=== PATIENT | female | born 1945 | race Caucasian/White ===

== ENCOUNTER 2024-12-21 20:40 | Emergency (ER) | payer MEDICARE ==
[~2024-12-21] VITALS: Ht 157.5 cm; Wt 77.0 kg
[2024-12-21 21:35] LABS: MEAN PLATELET VOLUME 7.1 FL (7.4-10.4); RED CELL DISTRIBUTION WIDTH 16.8 % (11.5-14.5)
[2024-12-21 21:44] LABS: CREATININE 1.32 MG/DL (0.40-0.90); TOTAL CARBON DIOXIDE 28.2 MMOL/L (24-32); eCRCL 28 ML/MIN; eGFR 39 ML/MIN
[2024-12-21 22:26] LABS: URINE HCG NEGATIVE (NEG)
[2024-12-21 22:55] LABS: LEUKOCYTE ESTERASE ,URINE MODERATE (Neg); NITRITES, URINE NEGATIVE (Neg); OCCULT BLOOD,URINE TRACE-INTACT (Neg)
[2024-12-21 22:56] LABS: UA COLLECTION TYPE CLN CATCH MIDSTREAM
--- NOTE | 2024-12-21 23:10 | Physician Documentation ---
History of Present Illness ~ Chief Complaint: Urinary Symptoms Stated Complaint: UTI Time Seen by MD: 23:08 Mode of Arrival: POV HPI Patient presents to the emergency room with chief complaint of dysuria and fevers. Onset of symptoms two days ago. Patient does have some vaginal discharge as well but this has been going on for months and she states she does have diagnosis of endometrial cancer. She denies any cough cold congestion symptoms and denies any abdominal pain. Medication Reconciliation Allergies: Coded Allergies: No Known Allergies (Unverified , 12/21/24) Scheduled Cephalexin*Monohydrate* (Keflex*), 1 CAP PO Q12H Review of Systems ROS All review of systems negative except as per HPI Physical Exam Vital Signs: Temperature: 99.3, Source: Oral, Heart Rate: 96, Respiratory Rate: 16, BP: 100/37, Pulse Oximetry: 97, Weight: 77.000 Oxygen Flow Rate: 0 Physical Exam General: Patient is awake, alert, oriented x4 in no acute distress and well appearing.~ Head: Normocephalic and atraumatic. Eyes: Conjunctival normal. EOMI. PERRL. ENT: Mucous membranes moist. Neck: Supple, trachea is midline. Chest: Clear to auscultation bilaterally without rales, rhonchi, or wheezes. There is no accessory muscle use or retractions. Cardiac: RRR without murmurs, gallops, or rubs. Abd: Soft, nondistended, nontender, with normoactive bowel sounds. No guarding, rebound, or rigidity. : Deferred Progress Results/Orders Results/Orders Orders - PRESTON MAY MD Covid19 Binax Poc Result Entry (12/21/24 23:11) Completed Orders - PRESTON MAY MD Procalcitonin (12/21/24 23:09) Cephalexin Capsule (Keflex Capsule) (12/21/24 23:20) Medications Received in ER Medications (Trade) Dose Ordered Sig/Angelo Route PRN Reason Start Time Stop Time Status Last Admin Dose Admin (Tylenol tablet) 650 mg ONCE ONCE PO 12/21/24 20:50 12/21/24 20:51 DC 12/21/24 20:52 650 MG (Keflex capsule) 500 mg ONCE ONCE PO 12/21/24 23:20 12/21/24 23:21 DC 12/21/24 23:27 500 MG Vital Signs 12/21/24 12/21/24 12/21/24 12/21/24 20:41 22:11 22:18 23:18 Temp 101.8 99.3 99.3 Pulse 120 96 93 Resp 16 15 16 18 B/P (MAP) 148/63 100/37 (58) 125/48 (73) Pulse Ox 95 97 97 O2 Flow Rate 0 0 0 Laboratory Tests Test 12/21/24 20:50 12/21/24 21:06 12/21/24 23:23 Urine Specimen Description Cln catch midstream Urine Color Yellow Urine Clarity Clear Urine pH 6.0 Urine Specific [place] <=1.005 Urine Protein Negative Urine Glucose (UA) Negative Urine Ketones Negative Urine Occult Blood Trace-intact Urine Nitrite Negative Urine Bilirubin Negative Urine Urobilinogen 0.2 Urine Leukocyte Esterase Moderate H Urine RBC 0-2 Urine WBC 0-4 Urine WBC [place] Few Urine Squamous Epithelial Cells Few Urine Bacteria 1+ Urine Culture Indicated Indicated Volume Urine Centrifuged 10 ml Urine HCG, Qualitative Negative Urine Comment White Blood Count 9.5 Red Blood Count 3.57 L Hemoglobin 9.2 L Hematocrit 27.7 L Mean Corpuscular Volume 77.6 L Mean Corpuscular Hemoglobin 25.7 L Mean Corpuscular Hemoglobin Concent 33.1 Red Cell Distribution Width 16.8 H Platelet Count 350 Mean Platelet Volume 7.1 L Neutrophils (%) (Auto) 67.2 Lymphocytes (%) (Auto) 19.5 L Monocytes (%) (Auto) 9.4 Eosinophils (%) (Auto) 3.7 Basophils (%) (Auto) 0.2 Neutrophils # (Auto) 6.4 Lymphocytes # (Auto) 1.8 Monocytes # (Auto) 0.9 Eosinophils # (Auto) 0.4 Basophils # (Auto) 0.0 CBC Comment Sodium Level 131 L Potassium Level 3.7 Chloride Level 92 L Carbon Dioxide Level 28.2 Anion Gap 11 Blood Urea Nitrogen 33 H Creatinine 1.32 H Estimated GFR/1.73 m2 39 BUN/Creatinine Ratio 25.0 H Glucose Level 137 H Lactic Acid Level 0.9 Calcium Level 8.9 Total Bilirubin 0.4 Aspartate Amino Transf (AST/SGOT) 20 Alanine Aminotransferase (ALT/SGPT) 23 Alkaline Phosphatase 50 Total Protein 7.5 Albumin 3.1 L Globulin 4.4 H Albumin/Globulin Ratio 0.7 L Lipase 17 Procalcitonin 0.13 Chemistry Comments SARS-CoV-2 Antigen (Rapid) Negative Microbiology Date/Time Source Procedure Growth Status 12/21/24 23:15 Urine Clean Catch Midstream Urine Culture - Preliminary Culture received. Resulted 12/21/24 21:10 Blood Arm Right Blood Culture - Preliminary NEGATIVE (LESS THAN 24 HOURS) Resulted Medical Decision Making Findings Patient presents to the emergency room for evaluation of fever and dysuria. Differentials include but are not limited to sepsis, urinary tract infection, viral syndrome, interstitial cystitis therefore emergent labs ordered. Labs show urinary tract infection but no elevation of white blood cell count. Patient does have a discharge but this is chronic in nature and no worse than usual and I do not feel she is suffering from PID. Departure Disposition: HOME / SELF CARE / HOMELESS Impression: Primary Impression: Acute urinary tract infection Condition: Stable Discharge Instructions: Urinary Tract Infection, Adult Referrals: NO PRIMARY CARE PROVIDER (PCP) Prescriptions Cephalexin*Monohydrate* (Keflex*) 500 Mg Capsule 1 CAP PO Q12H for 10 Days, #20 CAP Prov: PRESTON MAY MD 12/21/24 Signature Scribe Signature: No scribe Attestation: The note accurately reflects work and decisions made by me.Preston May MD 12/22/24 00:55 PRESTON MAY MD Dec 21, 2024 23:10
[2024-12-21 23:14] LABS: SQUAMOUS EPITHELIAL CELL,UR FEW /LPF (FEW)
[2024-12-21 23:15] LABS: WBC CLUMPS,URINE FEW /HPF (NEGATIVE)
[2024-12-21 23:18] VITALS: BP 125/48; PULSE 93; RESP 18; TEMP 99.3; O2SAT 97
[2024-12-21] MEDS ORDERED: CEPH-585 PO (23:22)
== END 2024-12-21 23:31 | disposition home or self-care (01) ==
LOC: ER 20:41
DX: N39.0 Urinary tract infection, site not specified (principal); Z20.822 Contact with and (suspected) exposure to COVID-19
CPT/HCPCS: 36415; 80053; 81001; 81025; 83605; 83690; 84145; 85025; 87040; 87088; 87811; 99283